=== PATIENT | male | born 1950 | race Caucasian/White ===

== ENCOUNTER 2020-07-25 08:14 | Emergency (ER) | payer MEDICARE, BC ==
[2020-07-25] MEDS ORDERED: Fluorescein 1 MG Ophth Strip EYERT ONE (08:21)
--- NOTE | 2020-07-25 08:21 | EDM.PDOC ---
ED HPI GENERAL MEDICAL PROBLEM - General Chief Complaint: Eye Problems Stated Complaint: RIGHT EYE DEBRIS? Time Seen by Provider: 07/25/20 08:19 Source of Information: Reports: Patient, Old Records, RN, RN Notes Reviewed History Limitations: Reports: No Limitations - History of Present Illness INITIAL COMMENTS - FREE TEXT/NARRATIVE: Pt presents to ER from home by POV with c/o that he feels like he has something in his right eye yesterday while mowing grass. Pt woke with yellow matting, pain, and irritation in the eye. Denies visual change. Onset: Sudden Duration: Constant Location: Reports: Other (Right eye) Quality: Reports: Ache, Burning Severity: Moderate Improves with: Reports: None Worsens with: Reports: None Associated Symptoms: Reports: No Other Symptoms - Related Data Allergies Allergy/AdvReac Type Severity Reaction Status Date / Time morphine Allergy Cannot Verified 07/25/20 08:21 Remember Home Meds: Home Meds Fexofenadine [Suzy] 30 mg PO DAILY 07/25/20 [History] Sodium Chloride 0.65% [[place] Nasal [place]] 2 spray NASBOTH BID PRN 07/25/20 [History] Past Medical History HEENT History: Reports: Allergic Rhinitis Social & Family History - Family History Family Medical History: No Pertinent Family History - Living Situation & Occupation Living situation: Reports: , with Spouse Occupation: Other ([employer]) ED ROS GENERAL - Review of Systems Review Of Systems: Comprehensive ROS is negative, except as noted in HPI. ED EXAM GENERAL W FULL EYE - Physical Exam Exam: See Below Exam Limited By: No Limitations General Appearance: Alert, WD/WN, No Apparent Distress Eye Exam: Right Eye: Conjunctival Injection, Corneal Abrasion, Left Eye: Normal Inspection, Bilateral Eye: EOMI, PERRL Eyelids: Right: Lid Everted for Exam Conjunctiva & Sclera: Right: Discharge, Injected, Left: Normal Appearance Cornea Exam: Right: Corneal Abrasion, Examined with Flourescein, Left: Normal Appearance Extraocular Movements: Bilateral: Intact Pupils: Normal Accommodation Pupillary Size: Bilateral: 3 mm Pupillary Reaction: Bilateral: Brisk Anterior Chamber: Bilateral: Normal Appearance Nose: Normal Inspection Throat/Mouth: Normal Lips, Normal Voice, No Airway Compromise Head: Atraumatic, Normocephalic Neck: Normal Inspection Respiratory/Chest: No Respiratory Distress Neurological: Alert, Oriented, CN II-XII Intact, Normal Cognition, No Motor/Sensory Deficits Psychiatric: Normal Mood Skin Exam: Warm, Dry, Intact, Normal Color, No Rash Course - Vital Signs Last Recorded V/S: Last Vital Signs Temp 97.6 F 07/25/20 08:22 Pulse 83 07/25/20 08:22 Resp 16 07/25/20 08:22 BP 150/86 H 07/25/20 08:22 Pulse Ox 100 07/25/20 08:22 - Orders/Labs/Meds Meds: Medications Discontinued Medications Generic Name Dose Route Start Last Admin Trade Name John PRN Reason Stop Dose Admin Fluorescein Sodium 1 mg 07/25/20 08:21 07/25/20 08:36 Fluorescein 1 Mg Ophth Strip EYERT 07/25/20 08:22 1 mg ONETIME ONE Administration Gentamicin Sulfate 1 ml 07/25/20 08:22 07/25/20 08:36 Gentamicin 0.3% Ophth Soln 5 Ml Bottle EYERT 07/25/20 08:23 1 drop ONETIME ONE Administration Tetracaine HCl 1 ml 07/25/20 08:22 07/25/20 08:35 Tetracaine Hcl/Pf 0.5% 4 Ml Bottle EYERT 07/25/20 08:23 1 applic ONETIME ONE Administration Departure - Departure Time of Disposition: 08:43 Disposition: Home, Self-Care 01 Condition: Good Clinical Impression: Corneal abrasion, right Qualifiers: Encounter type: initial encounter Qualified Code(s): S05.01XA - Injury of conjunctiva and corneal abrasion without foreign body, right eye, initial encounter - Discharge Information *PRESCRIPTION DRUG MONITORING PROGRAM REVIEWED*: Not Applicable *COPY OF PRESCRIPTION DRUG MONITORING REPORT IN PATIENT JOSE: Not Applicable Instructions: Bacterial Conjunctivitis, Adult, [id number], Corneal Abrasion Forms: ED Department Discharge Additional Instructions: Gentamicin Ophthalmic Solution 0.3% One drop to right eye four times a day for five days. Wear sunglasses even in doors, for the next 1 week. Call [phone] to schedule an appointment at [facility] for tomorrow or Saturday for E.R. follow up. Sepsis Event Note (ED) - Focused Exam Vital Signs: Vital Signs Temp Pulse Resp BP Pulse Ox 07/25/20 08:22 97.6 F 83 16 150/86 H 100
[2020-07-25] MEDS ORDERED: Tetracaine HCl/PF 0.5% 4 ML Bottle EYERT ONE (08:22)
[2020-07-25] MEDS ORDERED: Gentamicin 0.3% Ophth Soln 5 ML Bottle EYERT ONE (08:22)
== END 2020-07-25 08:53 | disposition home or self-care (01) ==
LOC: DL.ED 08:14
DX: S05.01XA Injury of conjunctiva and corneal abrasion without foreign body, right eye, initial encounter (principal); Z88.6 Allergy status to analgesic agent; W22.8XXA Striking against or struck by other objects, initial encounter
CPT/HCPCS: 99283; A9270-GY